=== PATIENT | female | born 1985 | race Caucasian/White ===

== ENCOUNTER → 2021-01-15 12:07 | Outpatient (CLI) | payer OTHER, SELFPAY ==
--- NOTE | ~2021-01-15 | US_ITS ---
US renal BI 01/15/2021 12:28 Procedure: Realtime transabdominal ultrasound of the kidneys and bladder. Indication: Family history of polycystic kidneys Comparison: No prior studies for comparison. Findings: Renal echotexture is normal bilaterally without hydronephrosis, contour deforming mass or r enal calculus. The right kidney measures 10.2 cm and left kidney measures 9.8 cm. Bladder within nor mal limits. Impression: 1: Unremarkable renal ultrasound. No stones, masses or hydronephrosis. Reviewed, dictated and finalized at location A. Impression: 1: Unremarkable renal ultrasound. No stones, masses or hydronephrosis.
== END ==
PROVIDERS: PCP Physician Assistant; Visit Provider Physician Assistant
DX: Z82.71 Family history of polycystic kidney (principal)
CPT/HCPCS: 76775

== ENCOUNTER 2021-02-22 20:17 | Emergency (ER) | payer OTHER, SELFPAY ==
[2021-02-22 20:36] VITALS: BP 108/86; PULSE 80; RESP 14; TEMP 36.8; O2SAT 98
--- NOTE | 2021-02-22 21:20 | PC.NURSE ---
Pt family comes to desk to state that they will be taking the pt to another hospital. Pt informed that we would be happy to see her if she can wait a little longer. Pt still wants to leave due to amount of pain she is in. Pt is A&Ox4 and encouraged to return if she continues having symptoms and is unable to receive care elsewhere.
== END 2021-02-23 02:41 | disposition left against medical advice (07) ==
PROVIDERS: PCP Physician Assistant
DX: M54.6 Pain in thoracic spine (principal)
CPT/HCPCS: 99199; L0140

== ENCOUNTER → 2021-04-08 08:30 | Outpatient (CLI) | payer OTHER, SELFPAY ==
--- NOTE | ~2021-04-08 | MMUS_ITS ---
EXAMINATION: MM diagnostic angel BI w anabel, US breast BI complete HISTORY: Breast pain TECHNIQUE: Additional 3-D tomosynthesis images of the breasts were performed and synthetic 2-D images were generated. CAD analysis was submitted and interpreted. High resolution bilateral complete breas t ultrasound was performed. COMPARISON: None BREAST PARENCHYMAL COMPOSITION: The breasts are heterogenously dense, which may obscure small masses FINDINGS: MAMMOGRAPHIC FINDINGS: There are no suspicious masses, calcifications or architectural distortion in either breast to sugges t malignancy. ULTRASOUND: Complete bilateral US of all 4 quadrants of the breasts and retroareolar region was reviewed. Right breast: At 9:00, 3 cm from the nipple, there is a 6 mm cyst. At 10:00, 7 cm from the nipple in the area of pain there is an oval hypoechoic mass measuring 4 mm with parallel orientation, no electrical controls assembler ior features and no internal vascularity. Left breast ultrasound: At 5:00, 4 cm from the nipple there is a 4 mm cyst. IMPRESSION: 1. Probable benign right breast mass at 10:00, 7 cm from the nipple. No evidence for malignancy in th e left breast. 2. Recommend 6 month follow-up targeted right breast ultrasound BI-RADS category 3, probably benign findings. Reviewed, dictated and finalized at location A. STANT SHIFT SUPERVISOR IMPRESSION: 1. Probable benign right breast mass at 10:00, 7 cm from the nipple. No evidenc e for malignancy in the left breast. 2. Recommend 6 month follow-up targeted right breast ultrasound BI-RADS category 3, probably benign findings.
== END ==
PROVIDERS: PCP Physician Assistant; Visit Provider Nurse Practitioner
DX: N64.4 Mastodynia (principal)
CPT/HCPCS: 76641; 77062; 77066; G0279

== ENCOUNTER 2021-07-27 12:21 | Outpatient (CLI) | payer OTHER, SELFPAY ==
--- NOTE | ~2021-07-27 | US_ITS ---
EXAMINATION: US abdomen complete EXAM DATE: 07/27/2021 12:56 INDICATION: Upper abdominal pain . TECHNIQUE: Multiple grayscale and Doppler images of the complete abdomen were obtained (by a technolo gist who performed the scan) and subsequently reviewed. Comparison is made to prior examination from 01/15/2021. FINDINGS: The abdominal aorta is normal in caliber. Visualized portion IVC is patent. The pancreatic head a nd body are normal in appearance. The pancreatic tail is not visualized. The liver has normal echogenicity and contour. There are no focal liver lesions identified. There is no evidence of intrahepatic biliary duct dilation. Portal venous flow was seen in the hepatopedal , normal direction and has normal Doppler waveform. Common bile duct measures 4 mm, which is normal. The gallbladder wall is normal in thickness, with ex pected amount of distention. No sonographic evidence of pericholecystic fluid. There is no cholelit hiases. Technologist performing exam reports patient did not demonstrate sonographic Wakefield's sign. Please note that this sign is less reliable in patients who have received pain medication. Right kidney: There is normal contour and echogenicity. It measures 8.5 x 4.4 x 4.6 centimeters. T here are no focal renal lesions identified. There is no hydronephrosis. Left kidney: There is normal contour and echogenicity. It measures 10.5 x 6.4 x 4.0 centimeters. T here are no focal renal lesions identified. There is no hydronephrosis. The spleen measures 8.5 centimeters and is morphologically normal. IMPRESSION: 1. Unremarkable complete abdominal ultrasound exam. Reviewed, dictated and finalized at location B.
--- NOTE | ~2021-07-27 | XR_ITS ---
EXAMINATION: XR UGIAC w small bowel EXAM DATE: 07/27/2021 15:57 INDICATION: Upper abdominal pain. Burning/sharp pain in upper left abdomen under rib cage x 10 years . TECHNIQUE: Languages And Literature Instructor radiograph was acquired. Standard single and double contrast barium upper GI examina tion and small bowel series was performed by radiologist Narciso Hidalgo M.D. Spot images of the termina l ileum were acquired. Pulsed dose reduction fluoroscopy was used with fluoroscopic time of 0.8 lauro karina. The DAP for this procedure was 3.7 Gycm2. A total of 123 images obtained for the exam. There is no prior study for comparison. FINDINGS: There is no esophageal stricture, diverticulum or mass identified. No gastroesophageal hia jamar hernia was demonstrated, but patient did demonstrate reflux. The stomach has a normal appearance without evidence of mass lesion, ulceration or filling defect. T here is normal rugal fold pattern. The duodenum and duodenal sweep are normal in appearance. Ileal and jejunal fold patterns are normal. There is no small bowel wall thickening or mass effect d isplacing small bowel. There are no intraluminal filling defects identified. There is no small cody l dilation. Terminal ileum is normal in appearance. Contrast reached the colon by 2 hours, normal t ransit time. IMPRESSION: Gastroesophageal reflux. Otherwise unremarkable exam. Reviewed, dictated and finalized at location B.
== END 2021-07-27 12:22 ==
PROVIDERS: Visit Provider Physician Assistant
DX: R10.10 Upper abdominal pain, unspecified (principal); K21.9 Gastro-esophageal reflux disease without esophagitis
CPT/HCPCS: 74246; 74248; 76700

== ENCOUNTER 2021-11-29 09:51 | Outpatient (CLI) | payer OTHER, SELFPAY ==
--- NOTE | ~2021-11-29 | US_ITS ---
EXAMINATION: US pelvic complete DATE: 11/29/2021 10:31 INDICATION: Pelvic pain Comparison:Ultrasound dated 02/13/2019 TECHNIQUE: Multiple transabdominal and endovaginal sonographic images of the pelvis performed. FINDINGS: The uterus measures 10 x 5 x 6.5 cm. The endometrial complex measures 1.3 cm. The right ovary measures 3.3 x 2.2 x 3.6 cm and the left ovary measures 3.4 x 2.2 x 3.4 cm. There ar e small follicles in each ovary. Normal doppler signal in both ovaries. There is no free fluid in the pelvis. There are no abnormal masses seen on either side. IMPRESSION: 1. Mild endometrial thickening measuring 1.3 cm. Reviewed, dictated and finalized at location A.
--- NOTE | ~2021-11-29 | US_ITS ---
US breast RT limited 11/29/2021 10:23 Indication: Follow-up right breast mass Procedure: High-resolution Limited ultrasound of the right breast Comparison: 04/08/2021 Findings: No significant interval change to oval hypoechoic 5 mm mass at 10:00, 7 cm from the nipple. There is parallel orientation, no significant posterior features or internal vascularity. Impression: 1: Stable likely benign right breast mass at 10:00, 7 cm from the nipple. BI-RADS CATEGORY 3-PROBABLY BENIGN FINDING RECOMMENDATION: Six-month follow-up bilateral mammogram and limited right breast ultrasound recommend ed. Reviewed, dictated and finalized at location A. Impression: 1: Stable likely benign right breast mass at 10:00, 7 cm from the nipple. BI-RADS CATEGORY 3-PROBABLY BENIGN FINDING RECOMMENDATION: Six-month follow-up bilateral mammogram and limited right breas t ultrasound recommended.
== END 2021-11-29 09:52 ==
PROVIDERS: PCP Physician Assistant; Visit Provider Advanced Practice Midwife
DX: N64.4 Mastodynia (principal); R10.2 Pelvic and perineal pain; N94.10 Unspecified dyspareunia; R93.89 Abnormal findings on diagnostic imaging of other specified body structures; R92.8 Other abnormal and inconclusive findings on diagnostic imaging of breast
CPT/HCPCS: 76642; 76856